=== PATIENT | male | born 1970 | race Caucasian/White ===

== ENCOUNTER 2019-09-18 12:55 | Emergency (ER) | payer OTHER ==
[~2019-09-18] VITALS: Ht 177.8 cm; Wt 81.7 kg
[2019-09-18] MEDS ORDERED: IBUP800 PO (13:48)
== END 2019-09-18 13:53 | disposition home or self-care (01) ==
LOC: ER 12:55
DX: S92.421A Displaced fracture of distal phalanx of right great toe, initial encounter for closed fracture (principal); W20.8XXA Other cause of strike by thrown, projected or falling object, initial encounter
CPT/HCPCS: 73630